=== PATIENT | male | born 1975 | race Caucasian/White ===

== ENCOUNTER 2017-12-08 10:18 | Emergency (ER) | payer OTHER ==
[~2017-12-08] VITALS: Ht 182.9 cm; Wt 92.5 kg
[2017-12-08 10:23] VITALS: TEMP 37; Ht 182.9 cm; Wt 92.5 kg
--- NOTE | 2017-12-08 11:13 | EMERGENCY ROOM VISIT NOTE ---
History Report prepared by Dilan: Inna Thomas Under the Supervision of: Dr. Marnie Gamez M.D. First contact with patient: 10:29 Chief Complaint: BACK PAIN Stated Complaint: BACK PAIN, WC History of Present Illness The patient is a 42 year old male who presents to the Emergency Room with complaints of worsening back pain for the past 3 weeks. 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 He rates his current pain as a 10 /10 in severity. Movement worsens his symptoms and Tramadol and steroids have provided minimal relief. He denies any loss of function of his bladder or bowels. He can still move both of his legs. 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 A total of 10 systems reviewed and were otherwise negative. Past Medical & Surgical Medical Problems: (1) History of drug overdose Social History Smoking Status: Current Every Day Smoker Alcohol Use: occasionally Drug Use: none Marital Status: Housing Status: lives with family Occupation Status: employed Current/Historical Medications Scheduled Gabapentin (Neurontin), 300 MG PO Q8 Ibuprofen (Motrin), 600 MG PO TID Prednisone (Prednisone), 10 MG PO DIRECTED Scheduled PRN Chlorzoxazone (Parafon Forte Dsc), 500 MG PO UD PRN for Muscle Spasms Hydrocodone/Acetaminophen 5MG/325MG ([place] 5MG/325MG), 1 TABLET PO Q4 PRN for Pain Tramadol (Ultram), 1-2 TABS PO Q4H PRN for Pain Allergies Coded Allergies: No Known Allergies (Unverified , 12/08/17) Physical Exam Vital Signs Date Time Temp Pulse Resp B/P (MAP) Pulse Ox O2 Delivery O2 Flow Rate FiO2 12/08/17 13:02 78 18 139/74 96 12/08/17 10:23 37.0 121 18 151/83 100 Room Air Physical Exam Vital signs reviewed. General: Well-appearing 42 year old male, in no significant distress. HEENT: No scleral icterus, PERRLA, neck supple. Atraumatic. Cardiovascular: Regular rate and rhythm, no extra sounds. Pulmonary: Clear to auscultation bilaterally, normal work of breathing. Abdomen: Soft, nontender, nondistended, positive bowel sounds. Musculoskeletal: Atraumatic, no peripheral edema. Negative straight leg raise. Full strength in the bilateral LE's. Neurologic: Patient awake alert and oriented x 3, full strength in all 4 extremities. Cranial nerves 2 through 12 grossly intact. Skin: Warm, dry, no rash Medical Decision & Procedures Medications Administered Medications (Trade) Dose Ordered Sig/Alin Route Start Time Stop Time Status Last Admin Dose Admin Dexamethasone Sodium Phosphate (Dexamethasone Inj Pf) 10 mg NOW STAT IM 12/08/17 11:15 12/08/17 11:17 DC 12/08/17 11:24 10 MG Hydromorphone HCl (Dilaudid Inj) 1 mg NOW STAT IM 12/08/17 11:15 12/08/17 11:17 DC 12/08/17 11:24 1 MG Diazepam (Valium Tab) 5 mg NOW ONCE PO 12/08/17 11:15 12/08/17 11:17 DC 12/08/17 11:24 5 MG ED Course 1109: Past medical records reviewed. The patient was evaluated in room A10. A complete history and physical examination was performed. 1115: Valium 5 mg PO, Dilaudid 1 mg IM, Dexamethasone 10 mg IM. 1241: Nursing reports the patient was sleeping, rolled off the bed, got up and states he feels no better. 1300: I reevaluated the patient. He states he has now had some pain relief with medications. I discussed his discharge instructions and he verbalized complete understanding and agreement. Medical Decision Differential diagnosis: Etiologies such as musculoskeletal, disc herniation, fracture, aortic disease, metastatic disease, cord compression, discitis, infection, renal colic, gastrointestinal, acute exacerbation of chronic back pain, sciatica, cauda equina, as well as others were entertained. This patient was evaluated and appeared to be in some discomfort. Patient was medicated with dexamethasone 10 mg IM, 1 mg of IM Dilaudid and 5 mg of Valium by mouth. The patient has had imaging of his back and is scheduled for an MRI in 2 days. I explained that without any significant neuro deficits on exam, loss of bowel or bladder function, there is no need for emergent MRI. He did express his frustration with the difficulty in obtaining workup and relief of his symptoms. Patient will be discharged on a prednisone taper. Patient was given gabapentin 300 mg 3 times a day as well as [place] for occasional severe pain. He was encouraged to seek pain management or spine consultation after the MRI if needed. The patient will continue to work with his worker's comp physician for further management. He will return to the ER for worsening of symptoms or any medical concerns. Medication Reconcilliation Current Medication List: was personally reviewed by me Blood Pressure Screening Patient's blood pressure: Elevated blood pressure Blood pressure disposition: Elevated BP felt to be situational Impression Primary Impression: Lumbar radiculopathy, acute Scribe Attestation The scribe's documentation has been prepared under my direction and personally reviewed by me in its entirety. I confirm that the note above accurately reflects all work, treatment, procedures, and medical decision making performed by me. Departure Information Dispostion Home / Self-Care Prescriptions Prednisone (Prednisone) 10 Mg Tab 10 MG PO DIRECTED, #31 TAB 40 mg for 4 days, 30 mg for 3 days, 20 mg for 2 days, 10 mg for 2 days. Prov: Marnie Gamez M.D. 12/08/17 Gabapentin (NEURONTIN) 300 Mg Cap 300 MG PO Q8, #30 CAP Prov: Marnie Gamez M.D. 12/08/17 Hydrocodone/Acetaminophen 5MG/325MG ([place] 5MG/325MG) Tab 1 TABLET PO Q4 Y for Pain, #14 TAB Prov: Marnie Gamez M.D. 12/08/17 Referrals Nicole Cassidy (PCP) Patient Instructions My [facility] Additional Instructions Diagnosis: Lumbar radiculopathy Neuronin 300 mg three times daily. [place] 1 tab every 4 hours as needed for pain. Do not drive or take tylenol with this medication. Stop the Ultram. Prednisone 40 mg daily for 4 days, 30 mg daily for 3 days, 20 mg daily for 2 days, 10 mg daily for 2 days Follow-up with the MRI as scheduled in 2 days. Contact your worker's [employer] physician this week for reevaluation. Return to the emergency department for worsening of symptoms or any medical concerns.
[2017-12-08] MEDS ORDERED: DEXAMETHASONE **PF** INJ 10 MG/ML VIAL IM STA (11:15)
[2017-12-08] MEDS ORDERED: HYDROmorphone INJ 1 MG/ML SYR IM STA (11:15)
[2017-12-08] MEDS ORDERED: DIAZEPAM 5MG TAB PO ONE (11:15)
[2017-12-08] MEDS ORDERED: IBUP-1450 PO (11:53)
[2017-12-08] MEDS ORDERED: CHLO1TAB70 PO (11:53)
[2017-12-08] MEDS ORDERED: TRAM-10 PO (11:53)
[2017-12-08] MEDS ORDERED: NRN/300 PO (12:42)
[2017-12-08] MEDS ORDERED: PRED10TA PO (12:42)
[2017-12-08] MEDS ORDERED: HYDR-5688 PO (12:42)
[2017-12-08 13:02] VITALS: BP 139/74; PULSE 78; O2SAT 96
== END 2017-12-08 13:03 | disposition home or self-care (01) ==
LOC: C.EDB 10:21 → C.EDA 13:03
DX: M54.16 Radiculopathy, lumbar region (principal); X50.1XXA Overexertion from prolonged static or awkward postures, initial encounter; Y92.89 Other specified places as the place of occurrence of the external cause; Y99.0 Civilian activity done for income or pay; F17.210 Nicotine dependence, cigarettes, uncomplicated; Z79.899 Other long term (current) drug therapy

== ENCOUNTER → 2018-02-12 | Day surgery (SDC) | payer OTHER ==
[2018-02-07 08:13] VITALS: Ht 182.9 cm; Wt 95.5 kg
[~2018-02-12] VITALS: Ht 182.9 cm; Wt 95.5 kg
[~2018-02-12] MED LIST: CYCL10TA6 PO; GABA-113 PO; IOPAMIDOL INJ 61% 15 ML VIAL ONE; LIDOCAINE HCL 1% MPF 5 ML VIAL ONE; NAPR-1231 PO; SODIUM CHLORIDE 0.9% INJ 10 ML VIAL ONE
--- NOTE | 2018-02-12 12:55 | History & Physical Bridge - SC ---
H&P Re-Evaluation Bridge Note: I have examined the patient, reviewed the History & Physical and in the interval since the performance of the History & Physical I have noted the following changes of clinical significance: No changes noted
--- NOTE | 2018-02-12 13:18 | [facility] Post Operative Brief Note ---
Immediate Operative Summary Operative Date February 12, 2018. Pre-Operative Diagnosis Left S1 radiculopathy Post-Operative Diagnosis Same Procedure(s) Performed Lumbar Epidural Steroid Injection Surgeon Dr. Tiffani Olivier Channel Supervisor Surgeon(s) None Estimated Blood Loss 0 Findings Consistent with Post-Op Diagnosis Specimens NA Drains None Anesthesia Type Local Complication(s) none Disposition Disposition:
--- NOTE | 2018-02-12 13:19 | Discharge Instructions ---
Discharge Instructions Date of Service February 12, 2018. Visit Reason for Visit: Radiculopathy, Sacral & Sacrococcygeal Region Discharge Discharge Diagnosis / Problem: left leg pain Discharge Goals Goal(s): Decrease discomfort, Improve function Medications Stopped Medications Name(s): No blood thinners Activity Recommendations Activity Limitations: resume your previous activity Anesthesia . Post Anesthesia Instructions: If you have had General Anesthesia or IV Sedation: * Do not drive today. * Resume driving when surgeon permits. * Do not make important decisions or sign legal documents today. * Call surgeon for: 1. Temperature elevations greater than 101 degrees F. 2. Uncontrollable pain. 3. Excessive bleeding. 4. Persistent nausea and vomiting. 5. Medication intolerance (nausea, vomiting or rash). * For nausea and vomiting use only clear liquids such as: tea, soda, bouillon until nausea subsides, then gradually increase diet as tolerated. * If you have any concerns or questions, call your surgeon's office. If physician is unavailable and it is an emergency, call 911 or go to the nearest emergency room. . Diet Recommendations Recommended Home Diet: resume previous diet Procedures Procedures Performed: Lumbar Epidural Steroid Injection Pending Studies Studies pending at discharge: no Medical Emergencies . Who to Call and When: Medical Emergencies: If at any time you feel your situation is an emergency, please call 911 immediately. . Non-Emergent Contact Non-Emergency issues call your: Specialist . . "Provider Documentation" section prepared by Sourav Olivier. .
[2018-02-12 13:38] VITALS: BP 113/73; PULSE 79; O2SAT 95
--- NOTE | 2018-02-12 15:52 | OPERATIVE REPORT ---
DATE OF OPERATION: 02/12/2018 PREOPERATIVE DIAGNOSIS: L5-S1 disc disease with a left S1 radiculopathy. POSTOPERATIVE DIAGNOSIS: L5-S1 disc disease with a left S1 radiculopathy. PROCEDURE: Left paramedian L5-S1 intralaminar epidural steroid injection under fluoroscopic guidance. INDICATIONS: The patient is a 42-year-old white male who has had left-sided low back pain for a number of months since November that has not responded to conservative treatment. MRI reveals a disc protrusion at L5-S1 coming in close contact with the left S1 nerve root. He presents today for an injection to provide him with relief of his radicular pain. PHYSICAL EXAMINATION: A pleasant male, seated comfortably. He has some tenderness over the left paraspinal muscles. He has limitations with flexion. He has no focal weakness and he has intact sensation distally. CONSENT: Verbal and written consent was obtained from the patient. Risks and benefits were reviewed. Risks include but are not limited to epidural abscess, epidural hematoma, allergic reaction, dural puncture. The patient wishes to proceed. PROCEDURE IN DETAIL: The patient was taken back to the special procedures room of the [facility] where he was maintained in a prone position. Backside was cleansed with Betadine x3 and a dry sterile dressing was applied. Fluoroscope was used to identify the L5-S1 intralaminar space. Overlying skin on the left side was anesthetized with 4 mL of lidocaine 1% with a 25-gauge 1.5-inch needle. A 22-gauge 3.5 inch Tuohy needle was then directed down into the intralaminar space and was directed under lateral fluoroscopic guidance. Loss of resistance was noted at a depth of 6.5 cm. Isovue-300 contrast 1 mL was injected in which demonstrated an epidural uptake pattern. He then underwent injection after negative aspiration of 4 mL of preservative free sodium chloride and 40 mg of Depo-Medrol. During the procedure, he reported feeling a little bit faint. His heart rate had dropped, he was having a vagal reaction. He did not pass out. Injection was completed without issues and his symptoms resolved. DISPOSITION: 1. The patient is taken out into the discharge recovery area where he will be discharged home once discharge criteria have been met. 2. Follow up in the [facility] office in 4 weeks' time. I attest to the content of the Intraoperative Record and any orders documented therein. Any exception s are noted below.
== END | disposition home or self-care (01) ==
LOC: X.SURG 12:17
PROVIDERS: ATTEND Physical Medicine & Rehabilitation
DX: M51.17 Intervertebral disc disorders with radiculopathy, lumbosacral region (principal); M54.5 Low back pain; F17.200 Nicotine dependence, unspecified, uncomplicated; Z79.899 Other long term (current) drug therapy

== ENCOUNTER 2021-01-03 11:22 | Inpatient (IN) ==
[2021-01-03] MEDS ORDERED: ACETAMINOPHEN 1,000 MG/100 ML VIAL IV PRN (13:01)
[2021-01-03] MEDS ORDERED: ONDANSETRON INJ 2 MG/ML 2 ML VIAL IV PRN (13:01)
[2021-01-03] MEDS ORDERED: METOCLOPRAMIDE HCL INJ 5 MG/ML 2 ML VIAL IV PRN (13:01)
[2021-01-03] MEDS ORDERED: NALOXONE HCL 0.4 MG/1 ML VIAL/CARP IV PRN (13:01)
[2021-01-03] MEDS ORDERED: HYDROmorphone INJ 1 MG/ML SYRINGE IV PRN (13:01)
[2021-01-03] MEDS ORDERED: oxyCODONE HCL IR 5 MG TAB (IMMEDIATE RELEASE) PO PRN (13:01)
[2021-01-03] MEDS ORDERED: traMADol HCL 50 MG TABLET PO PRN (13:01)
[2021-01-03] MEDS ORDERED: ONDANSETRON 4 MG OD TAB PO PRN (13:01)
[2021-01-03] MEDS ORDERED: PROMETHAZINE HCL 12.5 MG in SODIUM CHLORIDE 0.9% 50 ML IV PRN (13:01)
[2021-01-03] MEDS ORDERED: ACETAMINOPHEN 500 MG TAB PO PRN (13:01)
[2021-01-03] MEDS ORDERED: LORazepam 0.5 MG/1 ML VIAL IV PRN (13:01)
[2021-01-03 13:21] LABS: Basophils # (auto) 0.02 K/uL (0-0.2); Basophils % (auto) 0.2 %; Eosinophils # (auto) 0.02 K/uL (0-0.5); Eosinophils % (auto) 0.2 %; Hematocrit (blood only) 46.7 % (42-52); Hemoglobin 16.8 g/dL (14.0-18.0); Immature Granulocytes # (auto) 0.03 K/uL (0.00-0.02); Immature Granulocytes % (auto) 0.3 %; Lymphocytes % (auto) 14.9 %; Mean Corpuscular Hemoglobin 30.1 pg (25-34); Mean Corpuscular Volume 83.7 fL (80-100); Mean Platelet Volume 10.8 fL (7.4-10.4); Monocytes # (auto) 0.56 K/uL (0.11-0.59); Neutrophils # (auto) 7.37 K/uL (1.4-6.5); Neutrophils % (auto) 78.4 %; Platelet Count 275 K/uL (130-400); RDW Coefficient of Variation 12.6 % (11.5-14.5); Red Blood Count 5.58 M/uL (4.7-6.1)
--- NOTE | 2021-01-03 13:21 | History & Physical Report ---
Date of Service January 03, 2021 Assessment & Plan (1) Lumbar radiculopathy, acute: Patient will be admitted to Dr. Johnson service. Plan is to undergo surgical intervention tomorrow in the form of a posterior lumbar decompression and instrumented fusion of L5-S1. Risk, benefits, pros cons nonsurgical in detail. This is also been discussed with his via phone conversation. These include but are not limited to , seizure, blindness, stroke, paralysis, chronic nerve pain, hardware failure, nonunion, adjacent level disease, DVT/PE, wound infection requiring reoperation, blood loss requiring blood transfusion. Patient has had all questions answered in detail. Make him n.p.o. after midnight. He would like to proceed with above-mentioned surgical planning as soon as possible. History of Present Illness This is a pleasant 45-year-old gentleman sent to the ER for evaluation of his lumbar spine. He has had similar complaints a couple years ago that were managed with physical therapy and pain management injections with Dr. Johnson. Recently he has had a flareup while at work. 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 He is trialed physical therapy with this most recent flareup. He has been off work. He did return back to work about 2 weeks ago and since that point time pain has significantly worsened. He came back to the ER 5 days ago for same complaints. He followed up with Dr. Olivier yesterday. MRI was reviewed that was performed in the ER on December 30. He was supposed to see someone in our office today but was referred to the emergency room for further evaluation. He is ambulating independently. Denies bowel or bladder dysfunction. Denies perineal numbness. Pain is most severe with sitting or with ambulation. He states he is only able to ambulate about 10 or 15 ft before missed he must lie down. He has received steroids recently. He has also received oral narcotics in the form of oxycodone over the weekend. Primary Care Provider: NO PCP Allergies Allergy/AdvReac Type Severity Reaction Status Date / Time No Known Allergies Allergy Unknown Unverified 12/30/20 10:56 Home Medications Medication Instructions Recorded Confirmed Type gabapentin 400 mg PO TID 12/30/20 12/30/20 History oxycodone 5 mg PO Q6H PRN #12 tab 12/30/20 Rx prednisone 10 mg PO UD 12/30/20 12/30/20 History Past Med/Surg History Social History Smoking Status: Never smoker Preferred Language: Eritrean Feels Safe at Home: Yes Review of Systems Review of Systems: All systems reviewed & are unremarkable except as noted in HPI & below Physical Exam Physical Exam: Patient is seen in the emergency room room C8. He is lying prone throughout our entire exam. Obviously uncomfortable. He is alert and oriented x3. Extremely uncomfortable. He is able to roll over so I may further examine him. He has a positive straight leg raise on the left. Positive contralateral straight leg raise. He has a 4/5 left hamstring when compared to 5/5 on the right. Calf soft nontender bilaterally. Negative logrolling. Otherwise strength is five five bilateral EHL, dorsiflexion, plantarflexion, quadriceps, hip flexors, hip abductor's and hip adductor's. Modest tenderness over the left sacroiliac region. No abnormal skin markings or thoracolumbar spine. He is unable to stand and ambulate due to the degree of discomfort. Eyes: normal visual kevin by confrontation ENMT: external ear and nose normal, oropharynx normal Neck: normal visual inspection Respiratory: normal respiratory effort Cardiovascular: Extremities: normal capillary refill Chest (Breasts): Chest: normal inspection of chest Gastrointestinal (Abdomen): Inspection/Auscultation: abdomen normal to inspection Musculoskeletal: Spine: + straight leg raise positive Extremities: + abnormal strength Skin: no rashes, warm and dry Neurologic: normal touch/pain/proprioception and moves all extremities Psychiatric: A+Ox3, euthymic affect Results & Data Results & Data ([facility]) Vital Signs (Past 12 Hours) Vital Signs Temp Pulse Resp BP Pulse Ox 01/03/21 11:32 37.0 C 100 H 16 162/131 H 97 Diagnostic Findings [facility], [id number] Magnetic Resonance Report Patient: SYLVIE RAIN EAdmit Date: 12/30/20MR#: [id number][id number] [facility][id number]: Date: 1975[facility] Zip: [place] [id number]: 45Location: EDSex: MRoom/Bed:Att Phy:Diagnosis: BACK PAINPri Phy: BÁRBARA,NOService Date: 12/30/20Fam Phy:Interpreting Phy: Aramis TorresAdmit Phy: Ordering Phy: Sonia Mondragon CRNP cc: ~ MR lumbar spine wo con CLINICAL HISTORY: 45 years-old Male with LBP, can't walk, numb toes. Acute severe low back pain with radiation into the left lower extremity COMPARISON: MRI lumbar spine 05/06/2018 TECHNIQUE: Multiplanar, multi sequence MRI of the lumbar spine was performed without intravenous contrast. FINDINGS: The jewel setter localizer images demonstrate moderate urinary bladder distention. Conus medullaris terminates at T12/L1. Signal within the imaged thoracic spinal cord and cauda equina appears unremarkable. No acute fracture, or subluxation. Mild Modic type I endplate degenerative change at L5-S1. T12-L1: No central canal or neural foraminal stenosis. L1-L2: No central canal or neural foraminal stenosis. L2-L3: No central canal or neural foraminal stenosis. L3-L4: No central canal or neural foraminal stenosis. L4-L5: Mild disc desiccation. Minimal spondylitic spurring with small posterior annular disc bulge. Central annular fissure with central 10 x 3 mm disc protrusion. There is flattening of the ventral thecal sac without significant central canal or neural foraminal narrowing. Ligamentum flavum thickening with mild facet arthrosis. L5-S1: Mild posterior intervertebral disc space narrowing with disc desiccation. Minimal spondylitic spurring with posterior annular disc bulge. There is a large left paracentral and left lateral recess disc extrusion which measures 1.4 x 0.9 x 1.1 cm in transverse, AP and cranial caudal dimensions (image 11 series 3 and image 29 series 6) there is abutment and posterior displacement of the left S1 nerve root. Mild adjacent anterior epidural edema. There is severe narrowing of the central canal, AP dimension of the thecal sac measuring 1 mm. Severe narrowing of the left lateral recess. Moderate right lateral recess narrowing. There is mild to moderate bilateral neural foraminal stenosis. IMPRESSION: 1. Posterior annular disc bulge with annular fissure and acute large left paracentral and left lateral recess disc extrusion at L5-S1 results in severe central canal and left lateral recess narrowing with mild to moderate bilateral neural foraminal stenosis. 2. Mild discogenic degeneration at L4-L5 without significant central canal or neural foraminal stenosis. ACT 112: Negative or not required by law. The above report was generated using voice recognition software. It may contain grammatical, syntax or spelling errors. Electronically signed by: Justice Torres M.D. 12/30/2020 1:37 PM Dictated: 12/30/20 1320Transcribed: 12/30/20 1336 Code Status & VTE Plan VTE Prophylaxis Plan VTE Prophylaxis will be ordered: Yes Supervising Physician Co-Signing Physician Notes Dr. Sourav Johnson
[2021-01-03 13:42] LABS: Albumin Globulin Ratio 0.9 (0.9-2); Albumin Level 4.2 gm/dl (3.4-5.0); BUN Creatinine Ratio 14.6 (10-20); Bilirubin,Total 0.7 mg/dl (0.2-1); Creatinine Clr Calc Pharmacy 110.4 ml/min; Est GFR (African American) 102.6; Est GFR (Non-African American) 88.6; Globulin 4.6 gm/dl (2.5-4.0); Potassium 3.9 mmol/L (3.5-5.1); Total Protein 8.8 gm/dl (6.4-8.2)
[2021-01-03 14:02] LABS: Influenza A virus by PCR Negative (Neg); Influenza B virus by PCR Negative (Neg); RSV by PCR Negative (Neg); SARS CoV2 RNA(COVID-19) InHosp NEGATIVE (Negative)
[2021-01-03] MEDS ORDERED: ceFAZolin 2000MG 2,000 MG/15 ML SYR IV SCH (14:15)
[2021-01-03] MEDS: GABAPENTIN 400 MG CAP PO SCH ×2 (15:28→20:34)
[2021-01-03] MEDS: dexAMETHasone 8 MG in SYRINGE 0 ML IV SCH ×2 (15:29→21:11)
--- NOTE | 2021-01-03 16:22 | XRay Report ---
TWO VIEW CHEST CLINICAL HISTORY: Preoperative examination. FINDINGS: PA and lateral chest radiographs are obtained. No prior studies are available for compariso n at the time of dictation. The cardiomediastinal silhouette is unremarkable. The lungs and pleural spaces are clear. There is no pneumothorax. The bony thorax appears intact. IMPRESSION: No active disease in the chest. ACT 112: Negative or not required by law. Electronically signed by: Alfa Ball M.D. 01/03/2021 4:21 PM
--- NOTE | 2021-01-03 17:55 | Anesthesiology Consultation ---
Date of Service January 03, 2021 Assessment & Plan Chart Review Chart Review: Acceptable Risk for Surgery Consults Requested none History Surgery Operation Date: 01/04/21 08:10 Proposed Procedures p L5-S1 Lumbar Decompression Fusion - Sourav Johnson DO Height/Weight Height: 6 ft Weight: 88.2 kg Allergies Allergy/AdvReac Type Severity Reaction Status Date / Time No Known Allergies Allergy Unknown Unverified 01/03/21 13:54 Medications Home Medications Medication Instructions Recorded Confirmed Last Taken gabapentin 400 mg PO TID 12/30/20 01/03/21 01/03/21 oxycodone 5 mg PO Q6H PRN #12 tab 12/30/20 01/03/21 01/03/21 01:30 acetaminophen [Tylenol Extra 500 mg PO Q6H PRN 01/03/21 01/03/21 01/03/21 04:30 Strength] 1000 mg Active Medications Generic Name Dose Route Start Last Admin Trade Name Freq PRN Reason Stop Dose Admin Gabapentin 400 mg 01/03/21 14:15 01/03/21 15:28 Gabapentin 400 Mg Cap PO 02/02/21 14:14 400 mg TID ZARI Administration Hydromorphone HCl 1 mg 01/03/21 13:01 01/03/21 14:17 Hydromorphone Inj 1 Mg/Ml Syringe IV 01/17/21 13:00 1 mg Q3H PRN Administration severe pain (scale 7-10) Dexamethasone 8 mg/ Syringe 2 mls @ 1 mls/min 01/03/21 14:15 01/03/21 15:29 IV 01/04/21 06:01 1 mls/min Q8 ZARI Administration Social History Smoking Status: Former smoker Hx Alcohol Use: Yes alcohol intake frequency: holidays/special occasions only Hx Substance Use: No substance use type: does not use Physical Exam Vital Signs Last Vital Signs Temp 36.6 C 01/03/21 17:26 Pulse 83 01/03/21 17:26 Resp 16 01/03/21 17:26 BP 160/102 H 01/03/21 17:26 Pulse Ox 96 01/03/21 17:26 Testing Laboratory Results 01/03/21 13:10 01/03/21 13:10 Blood Type A Positive 01/03/21 14:35 Antibody Screen NEGATIVE 01/03/21 14:35
[2021-01-03] MEDS: LACTATED RINGER'S 1,000 ML IV SCH (18:39)
[2021-01-03] MEDS ORDERED: GABAPENTIN 400 MG CAP PO SCH (21:00)
[2021-01-04] MEDS: LACTATED RINGER'S 1,000 ML IV SCH ×3 (05:13→20:14)
[2021-01-04] MEDS: dexAMETHasone 8 MG in SYRINGE 0 ML IV SCH (05:13)
[2021-01-04] MEDS ORDERED: ceFAZolin 2000MG 2,000 MG/15 ML SYR IV SCH (06:00)
[2021-01-04] MEDS ORDERED: BUPIVACAINE/EPINEPHRINE 0.5% MPF 1:200,000 30 ML VIAL ONE (07:00)
[2021-01-04] MEDS ORDERED: BACITRACIN INJ 50,000 UNIT VIAL ONE (07:00)
[2021-01-04] MEDS ORDERED: fentaNYL citrate 100 MCG/2 ML VIAL ONE ×2 (07:20→09:33)
[2021-01-04] MEDS ORDERED: ROCURONIUM BROMIDE 10 MG/ML 5 ML VIAL IV ONE (07:20)
[2021-01-04] MEDS ORDERED: LIDOCAINE HCL 2% 2 ML VIAL/AMP(20MG/ML) INFIL ONE (07:20)
[2021-01-04] MEDS ORDERED: ONDANSETRON INJ 2 MG/ML 2 ML VIAL ONE (07:20)
[2021-01-04] MEDS ORDERED: NEOSTIGMINE METHYLSULFATE 1 MG/ML 10ML VIAL ONE (07:20)
[2021-01-04] MEDS ORDERED: MIDAZOLAM HCL 1 MG/ML 2ML VIAL ONE ×2 (07:20→08:16)
[2021-01-04] MEDS ORDERED: PROPOFOL IV EMULSION 10 MG/ML 20 ML VIAL IV ONE (07:20)
[2021-01-04] MEDS ORDERED: GLYCOPYRROLATE 0.2 MG/ML VIAL ONE (07:20)
--- NOTE | 2021-01-04 07:48 | History & Physical Bridge Note ---
Date of Service January 04, 2021 History & Physical Bridge Note I have examined the patient, reviewed the History & Physical and in the interval since the performance of the History & Physical I have noted the following changes of clinical significance: no changes noted Lumbar decompression fusion L5-S1
[2021-01-04] MEDS ORDERED: fentaNYL citrate 100 MCG/2 ML VIAL IV PRN (08:14)
[2021-01-04] MEDS ORDERED: ePHEDrine sulfate 50 MG/ML AMP IV PRN (08:14)
[2021-01-04] MEDS ORDERED: HYDROmorphone INJ 2 MG/ML SYR/VIAL IV PRN (08:14)
[2021-01-04] MEDS ORDERED: ONDANSETRON INJ 2 MG/ML 2 ML VIAL IV PRN ×2 (08:14→11:45)
[2021-01-04] MEDS ORDERED: PROMETHAZINE HCL 12.5 MG in SODIUM CHLORIDE 0.9% 50 ML IV PRN ×2 (08:14→11:45)
[2021-01-04] MEDS ORDERED: ATROPINE SULFATE 0.1 MG/ML 10ML SYR IV PRN (08:14)
[2021-01-04] MEDS ORDERED: HYDROmorphone INJ 2 MG/ML SYR/VIAL ONE (08:30)
[2021-01-04] MEDS ORDERED: FLOSEAL HEMOSTATIC MATRIX 10ML TOP ONE (09:03)
[2021-01-04] MEDS ORDERED: PHENYLEPHRINE 100MCG/ML 5ML SYR ONE (09:58)
--- NOTE | 2021-01-04 10:02 | Operative Report ---
Post Operative Report Pre & Post Diagnosis Operation Date: 01/04/21 08:10 Pre-Op Diagnosis: HNP L5-S1 W/NEUROLOGICAL DEFICIT Post-Op Diagnosis: HNP L5-S1 W/NEUROLOGICAL DEFICIT I identified the patient and participated in the time-out.: Yes Procedure Operation Date: 01/04/21 08:10 Actual Procedures 1. Lumbar decompression with bilateral medial facetectomies and foraminotomies L5-S1. #2 posterior spinal fusion L5-S1. #3 placement posterior instrumentation L5-S1. #4 interbody fusion L5-S1. #5 placement peek cage 12 x 26 mm L5-S1. #6 placement of locally harvested morselized autograft in the posterior gutters. #7 placement I factor interbody space and posterior gutters. Surgeon Sourav Johnson, Campus Rep Kat Dotson Estimated Blood Loss 50 Findings Consistent with Post-Op Diagnosis Specimens None Indications This is a 45-year-old male who presents above-mentioned diagnosis having marked decline in neuro status and significant incapacitating pain is here for surgical invention. Description of Procedure Patient was met with identified informed consent obtained. Patient was then taken to the operative suite underwent a patient placed in a prone position Sonido table top Jony frame. All bony prominences well-padded eyes inspected to ensure no external pressure placed upon the. This point the lumbar spine was prepped and draped in a sterile fashion. Sharp dissection with the assistance of Bovie cautery performed down to and exposing the lamina transverse process of L5 and the sacral ala bilaterally. From caudal cephalad fashion complete laminectomy L5 was performed including aggressive medial facetectomies to adequately decompress the canal to safely access the massive disc herniation. There was a massive fragment also noted in the axillary region of the S1 nerve root. After complete removal of the fragments pedicle screws were placed in L5 and S1 levels bilaterally with assistance of fluoroscopy the proper sized mindy placed. By way of a transfemoral approach on the left complete discectomy of L4-5 S1 was performed endplates curetted to subcortical being bone and a 12 x 26 mm peek cage filled with I factor tapped in position. The rods then compressed locked in final position bilaterally. Transverse processes of L5 and the sacral ala burred to subcortical bleeding bone. I factor in morselized autograft was placed in the posterior gutters. 15 round JEN drain inserted. The incision was then closed with 1 Vicryl the fascia 2-0 Vicryl subcutaneously and 4 Monocryl for final skin closure. Steri-Strip sterile dressings placed. Patient waken taken PACU stable condition. Please note spinal cord monitoring was utilized at the procedure no changes noted. Kena Dotson was present at the entire surgery Patient positioning complex portions of the surgery and final skin closure. I attest to the content of the Intraoperative Record and any orders documented therein. Any exceptions are noted below.
--- NOTE | 2021-01-04 10:23 | Fluoroscopy Report ---
FL lumbar spine 2-3V CLINICAL HISTORY: L5-S1 DECOMPRESSION/FUSION COMPARISON STUDY: None. FLUOROSCOPY TIME: 23 seconds. FINDINGS: 2 fluoroscopic spot images of the lumbar spine demonstrate L5-S1 posterior decompression an d fusion with pedicle screws and rods. The hardware appears intact. IMPRESSION: Fluoroscopy provided for L5-S1 posterior decompression and fusion ACT 112: Negative or not required by law. Electronically signed by: Prateek Johns M.D. 01/04/2021 10:21 AM
--- NOTE | 2021-01-04 11:39 | Anesthesiology Progress Note ---
Date of Service January 04, 2021 Anesthesia Post Procedure Vital Signs Vital Signs: Temp Pulse Pulse Resp BP Pulse Ox 01/04/21 11:25 84 12 148/81 H 97 01/04/21 11:15 80 17 158/90 H 100 01/04/21 11:05 36.6 C 79 17 147/85 H 100 01/04/21 10:55 69 18 151/85 H 100 01/04/21 10:45 56 L 15 153/90 H 100 01/04/21 10:36 36.3 C L 67 18 150/81 H 100 01/04/21 07:57 37.2 C 93 H 14 156/98 H 98 01/04/21 07:40 36.6 C 103 H 18 143/87 H 95 01/03/21 22:37 36.6 C 91 H 18 147/91 H 95 01/03/21 17:26 36.6 C 83 16 160/102 H 96 01/03/21 15:33 80 18 146/110 H 95 01/03/21 13:00 91 H 18 145/99 H 97 Pain Intensity Back: Pain Intensity: 4 Transfer of Care Handoff Completed per policy Notes Mental Status: alert / awake / arousable and participated in evaluation Patient Amnestic to Procedure: Yes Nausea / Vomiting: adequately controlled Pain: adequately controlled Airway Patency, RR, SpO2: stable & adequate BP & HR: stable & adequate Hydration State: stable & adequate Anesthetic Complications: no major complications apparent and Pt Satisfied with anesthetic care
[2021-01-04] MEDS ORDERED: ALUMINUM/MAGNESIUM SUSP 30 ML UDC PO PRN (11:45)
[2021-01-04] MEDS ORDERED: LORazepam 0.5 MG/1 ML VIAL IV PRN (11:45)
[2021-01-04] MEDS ORDERED: hydrOXYzine HCl 25 MG TAB PO PRN (11:45)
[2021-01-04] MEDS ORDERED: SOD PHOSPHATE/SOD BIPHOSPHATE ENEMA 132 ML BTL PR PRN (11:45)
[2021-01-04] MEDS ORDERED: METOCLOPRAMIDE HCL INJ 5 MG/ML 2 ML VIAL IV PRN (11:45)
[2021-01-04] MEDS ORDERED: ONDANSETRON 4 MG OD TAB PO PRN (11:45)
[2021-01-04] MEDS ORDERED: NALOXONE HCL 0.4 MG/1 ML VIAL/CARP IV PRN (11:45)
[2021-01-04] MEDS ORDERED: HYDROmorphone INJ 0.5 MG/0.5 ML SYR IV PRN (11:45)
[2021-01-04] MEDS ORDERED: LORazepam 0.5 MG TAB PO PRN (11:45)
[2021-01-04] MEDS ORDERED: HYDROmorphone INJ 1 MG/ML SYRINGE IV PRN (11:45)
[2021-01-04] MEDS ORDERED: DO NOT ADMINISTER FLU VACCINE PRN (11:45)
[2021-01-04] MEDS ORDERED: bisacodyL 10 MG SUPP PR PRN (11:45)
[2021-01-04] MEDS ORDERED: ACETAMINOPHEN 500 MG TAB PO PRN (11:45)
[2021-01-04] MEDS ORDERED: DO NOT ADMINISTER PNEUMOCOCCAL VACCINE PRN (11:45)
[2021-01-04] MEDS ORDERED: ACETAMINOPHEN 1,000 MG/100 ML VIAL IV PRN (11:45)
[2021-01-04] MEDS ORDERED: diphenhydrAMINE Capsule 25 MG CAP PO PRN (11:45)
[2021-01-04] MEDS ORDERED: oxyCODONE HCL IR 5 MG TAB (IMMEDIATE RELEASE) PO PRN (11:45)
[2021-01-04] MEDS ORDERED: FAMOTIDINE 20 MG TAB PO PRN (11:45)
[2021-01-04] MEDS ORDERED: MAGNESIUM HYDROXIDE SUSP 30 ML UDC PO PRN (11:45)
[2021-01-04] MEDS: GABAPENTIN 400 MG CAP PO SCH ×3 (12:54→20:14)
[2021-01-04] MEDS: KETOROLAC 30 MG/ML VIAL IV SCH ×3 (12:59→23:32)
--- NOTE | 2021-01-04 14:27 | Electrocardiogram Report ---
Test Reason : Blood Pressure : / mmHG Vent. Rate : 084 BPM Atrial Rate : 084 BPM P-R Int : 172 ms QRS Dur : 088 ms QT Int : 334 ms P-R-T Axes : 049 -18 006 degrees QTc Int : 394 ms Normal sinus rhythm with sinus arrhythmia Moderate voltage criteria for LVH, may be normal variant Nonspecific T wave abnormality Abnormal ECG No previous ECGs available Confirmed by Zack Garibay ([id number]) on 01/04/2021 2:26:52 PM Referred By: REFERRED SELF Confirmed By:Zack Garibay
[2021-01-04] MEDS: ceFAZolin 2000MG 2,000 MG/15 ML SYR IV SCH (15:33)
[2021-01-04] MEDS: DOCUSATE SODIUM/SENNA 50/8.6MG TAB PO SCH (20:14)
[2021-01-05] MEDS: ceFAZolin 2000MG 2,000 MG/15 ML SYR IV SCH (00:07)
[2021-01-05] MEDS: LACTATED RINGER'S 1,000 ML IV SCH (03:10)
[2021-01-05] MEDS: KETOROLAC 30 MG/ML VIAL IV SCH (05:43)
[2021-01-05] MEDS: POLYETHYLENE (MIRALAX) 17 GM PACK PO SCH ×2 (05:48→10:44)
[2021-01-05] MEDS: GABAPENTIN 400 MG CAP PO SCH ×3 (08:12→19:59)
--- NOTE | 2021-01-05 08:28 | Orthopedic Progress Note ---
Date of Service January 05, 2021 Assessment & Plan (1) Lumbar radiculopathy, acute: Admission and Anticipated Discharge Date Admission Date: January 04, 2021 We will begin physical therapy today monitor his JEN output. Progresses appropriately throughout the next 24 hours anticipate discharge home tomorrow. Subjective Patient's back pain is controlled leg pain markedly improved. Still some residual numbness. Physical Exam Physical Exam: Patient peers comfortable is good strength testing. Results & Data ([facility]) Vital Signs (Past 12 Hours) Vital Signs Temp Pulse Resp BP Pulse Ox 01/05/21 07:05 36.7 C 71 18 138/75 98 01/05/21 03:28 36.7 C 70 17 149/77 H 97 01/04/21 23:00 36.5 C 65 17 123/75 97
[2021-01-05 08:43] LABS: Hematocrit (blood only) 38.8 % (42-52); Hemoglobin 13.3 g/dL (14.0-18.0); Mean Corpuscular Hemoglobin 29.6 pg (25-34); Mean Corpuscular Hgb Conc 34.3 g/dL (32-36); Mean Corpuscular Volume 86.2 fL (80-100); Platelet Count 240 K/uL (130-400); RDW Standard Deviation 41.2 fL (36.4-46.3); White Blood Count 13.85 K/uL (4.8-10.8)
[2021-01-05 08:50] LABS: BUN Creatinine Ratio 21.6 (10-20); Calcium 8.9 mg/dl (8.5-10.1); Creatinine Clr Calc Pharmacy 98.6 ml/min; Est GFR (African American) 99.1; Est GFR (Non-African American) 85.5; Potassium 4.2 mmol/L (3.5-5.1)
[2021-01-05] MEDS: dexAMETHasone 8 MG in SYRINGE 0 ML IV SCH (09:45)
[2021-01-05 10:20] LABS: Basophils # (auto) 0.01 K/uL (0-0.2); Basophils % (auto) 0.1 %; Eosinophils # (auto) 0.01 K/uL (0-0.5); Eosinophils % (auto) 0.1 %; Immature Granulocytes # (auto) 0.03 K/uL (0.00-0.02); Immature Granulocytes % (auto) 0.2 %; Lymphocytes # (auto) 2.19 K/uL (1.2-3.4); Lymphocytes % (auto) 15.8 %; Monocytes # (auto) 0.99 K/uL (0.11-0.59); Monocytes % (auto) 7.1 %; Neutrophils # (auto) 10.62 K/uL (1.4-6.5); Neutrophils % (auto) 76.7 %
[2021-01-05] MEDS: DOCUSATE SODIUM/SENNA 50/8.6MG TAB PO SCH (20:12)
[2021-01-06] MEDS: GABAPENTIN 400 MG CAP PO SCH (08:07)
[2021-01-06] MEDS: dexAMETHasone 8 MG in SYRINGE 0 ML IV SCH (08:08)
--- NOTE | 2021-01-06 10:26 | Discharge Summary ---
Date of Service January 06, 2021 Principal Diagnosis Lumbar discrimination with neuro deficit L5-S1 Discharge Data Allergies Allergy/AdvReac Type Severity Reaction Status Date / Time No Known Allergies Allergy Unknown Unverified 01/03/21 13:54 Consultations 01/03/21 13:06 Consult Anesthesiology Routine Procedures Performed Operation Date: 01/04/21 08:10 Actual Procedures p L5-S1 Lumbar Decompression Fusion(Not Applicable) - Sourav Johnson, Ordered Studies 01/04/21 [place] fluoroscopy <1hr Routine [place] lumbar spine 2-3V Routine Hospital Course (1) Lumbar radiculopathy, acute: Patient 1 urgent lumbar decompression fusion tolerates well second orthopedic for postop labor postop day 1 is up ambulating progressed to postop day #2 JEN drain decreasing probably. Pain well controlled. Strength improved. Subsequent discharge home. Discharge orders instructions from the chart for further review. Total Time Total Time Spent Total Time Spent (In Minutes): 20 minutes Discharge Plan Discharge Items Patient Disposition: Home - Self-Care Reason For Visit: HNP L5-S1 W/NEUROLOGICAL DEFICIT Discharge Diagnosis: L5-S1 disc herniation with neurologic deficit Activity: As commented below Non-emergency contact: Primary Care Provider Call non-emergency contact if: you have any medication questions Follow-up/Referrals: PCP,NO [Primary Care Provider] - Diet: Regular Addtl Attending Provider Instructions: ACTIVITY RECOMMENDATIONS: SELF CARE INSTRUCTIONS AFTER THORACIC/LUMBAR FUSIONS 1. You may walk to your tolerance. It is good exercise for your legs and back. Expect some back and intermittent leg aches and pains. 2. You may perform "counter-top" level activities (make a sandwich, luther with a project, etc.). 3. No bending or lifting of more than 10 pounds or back twisting of any nature (roll like a log when turning in bed). 4. You may ride in a car for 20-30 minutes at a time. No driving until after your first visit with your doctor. 5. Frequent changes of position and restricting sitting to 30 minutes at a time will help limit the amount of back spasms and stiffness you may experience. 6. You may discontinue the use of ambulatory aids (cane, crutches, etc.) once your strength and confidence allow. 7. You may refinery pipeline operator the shower and let water strike your incision when you arrive home at least once daily. Do not take a tub bath, sit in a hot tub or go into a swimming pool until after your first recheck in the office. SPECIAL CARE INSTRUCTIONS: VERY IMPORTANT TO READ AND REVIEW A. Your surgical incision has been closed with a cosmetic suture under the skin that will dissolve in about 6 weeks. In 14 days, you can use a pair of clean scissors and cut the suture that is left outside of the skin at the ends of your incision. 1. The small skin tapes can be removed 7 days after surgery if they have not fallen off by that point. 2. You may keep the wound open to air as much as possible to promote healing after post-op day number 5 unless told otherwise by your doctor. 3. If you think the wound looks like it is becoming infected (redness or worsening drainage) and/or you are experiencing fever, chill or worsening back pain and muscle spasms, contact the office so that we may evaluate you as soon as possible. B. Complications are uncommon, but please contact us if you have any signs or symptoms of: 1. wound infection (fever higher than 102.5 degrees F, redness, separation of wound, drainage, or increasing pain from the incision) 2. blood clots in legs (pain, swelling, redness and warmth in legs) 3. urinary tract infection (fever higher than 102.5 degrees F, burning upon urination or increased frequency of urination) 4. nerve problems (inability to walk on your toes or heels, numbness, loss of bowel or bladder control) 5. any other symptoms that concern you C. Please call the office at if you have any concerns or questions about your operation or recovery. D. No smoking! Smoking drastically decreases the chance of a solid fusion. E. Do not take any anti-inflammatory medications (Indocin, Advil, Motrin, Aspirin, Naprosyn, etc.) as these may inhibit the chance of a solid fusion. Tylenol is okay to take for pain. MANAGING PAIN AFTER SPINAL SURGERY 1. Narcotic medication is intended for short-term use and will be provided for surgical pain. Surgical pain usually lasts for a period of 4-6 weeks. Narcotic medication includes Percocet, Vicodin, Darvocet, Tylenol #3 or Lortab. 2. Longer-term pain is more appropriately treated with non-narcotic medication such as Tylenol ES. 3. Muscle spasm is not appropriately treated with narcotics. Muscle relaxers such as Soma, Flexeril or Skelaxin can be used along with Tylenol ES. 4. Remember that we all live with some "aches and pains". This is not unusual or uncommon after an injury or as we get older. a. Back pain is expected and may include muscle spasms for 4 to 6 weeks after surgery. The pain should gradually improve. If the pain worsens for no apparent reason, please contact the office. b. Intermittent leg pain may also be experienced and should not be concerned about unless it worsens for no apparent reason. If so, please contact the office. 5. We will provide appropriate medication within the normal guidelines of their prescribed use. We will also be very cautious and aware of potential abuse and extended duration of patients' medication needs. a. Pain medications are for your comfort and to assist with sleep and rest so that the tissue can heal. They are not provided in order to return to normal activity and should not be used through the day. To do so or worsening pain at night can result from ongoing tissue damage and development of tolerance to the prescribed medicine. 6. Please allow 2-3 days to process refills. Prescriptions will not be mailed but must be picked up at the office. FOLLOW UP VISIT: Keep your scheduled follow-up appointment. Any questions, please call the office at . Pending Studies at Discharge: No Stand-Alone Forms: [facility] [place], Smoking Cessation Medications and DC Order Prescriptions: New tramadol 50 mg tablet 50 mg PO Q6H PRN (Reason: pain, moderate) Qty: 30 RF: 0 oxycodone 5 mg tablet 5 mg PO Q6H PRN (Reason: pain, severe) Qty: 30 RF: 0 Continued gabapentin 400 mg capsule 400 mg PO TID RF: 0 oxycodone 5 mg tablet 5 mg PO Q6H PRN (Reason: pain, severe) Qty: 12 RF: 0 acetaminophen [Tylenol Extra Strength] 500 mg Tablet 500 mg PO Q6H PRN (Reason: Pain) RF: 0 Discharge Orders: Discharge Order (Routine); Ordered 01/06/21 Ordered By: Sourav Johnson Admission Data Admit Date/Time: 01/04/21 11:45 Attending Provider: Sourav Johnson Admit Provider: Sourav Johnson Primary Care Provider: PCP,NO Other Providers: Lillie Locke ; Susan Howard ; Kayla Emmanuel ; Beth Moreau ; Ella James ; Elvi Laureano ; Prakash Adkins ; Ry Villarreal ; Lucas Chen ; Prateek Lawson ; Siri Lawson ; Lang Noriega ; Mirian Fuchs ; Abisai Ortega ; Juan Simeon ; Marco Chaney ; Maycol Wooten ; Swetha Duque ; Fadi Stewart ; Kelsea Godwin ; Micaela Stewart ; Wei Barron ; Yumiko Brandon ; Alfredo Webb. ; Cris Tan. ; Mary Moyer ; Yumiko Conley. ; Lois Guzman ; Joel Levy ; Debbie Fuentes ; Katlyn Benavides ; Kayleigh Og ; Marnie Akers A ; Otf Akers V ; Jean Khan ; Kayla Bennett ; Will Velasquez ; Bebo Lisa ; Cherie Barnes ; Katie Martinez ; Otf Bryant ; Armand Boudreaux ; Steven Teixeira ; Cris Herrera ; Kayleigh Motta ; Harvey Castillo ; Gualberto Wooten ; Jania Riggs ; Abad Aguayo ; Lenny Dumas ; Ronaldo Perez ; Isauro Bernal
== END 2021-01-06 15:32 | disposition home or self-care (01) | DRG 455 ==
LOC: 3N 11:22 → ED 11:22 → 3N 17:02